=== PATIENT | male | born 1965 | race Caucasian/White ===

== ENCOUNTER 2019-09-10 15:42 | Emergency (ER) | payer SELFPAY ==
[~2019-09-10] VITALS: Ht 167.6 cm; Wt 81.6 kg
[2019-09-10 15:44] VITALS: BP 215/124
--- NOTE | 2019-09-10 15:50 | NUR ---
53/M BIB FAMILY C/O N/V X TODAY, LEFT EYE PAIN & SWELLING X 2 DAYS. BLOOD SUGAR 337, BP 215/124 AT TRIAGE ROOM.MED HX: DM, HTN. PATIENT STATES PAIN OF 8/10 AT THIS TIME. PATIENT POSITIONED FOR COMFORT; HOB ELEVATED; BEDRAILS UP X1; BED DOWN. ER MD MADE AWARE OF PT STATUS.
--- NOTE | 2019-09-10 15:52 | NUR ---
P 145,BP 186/100 AT THIS TIME .
--- NOTE | 2019-09-10 15:55 | NUR ---
PT TAKEN TO BED 12.
[2019-09-10] MEDS ORDERED: MORPHINE SULFATE 2 MG/ML SYR IVP ONE ×2 (16:15→19:20)
[2019-09-10] MEDS ORDERED: ONDANSETRON 4 MG/2 ML VIAL IVP ONE ×2 (16:15→18:00)
[2019-09-10] MEDS ORDERED: TETRACAINE HCL/PF 0.5% OPTH 4 ML BTL OP ONE (16:15)
[2019-09-10] MEDS ORDERED: ENALAPRILAT 2.5 MG/2 ML VIAL IVP ONE (16:15)
[2019-09-10] MEDS ORDERED: NACL 0.9% 1,000 ML IV ONE ×2 (16:15→18:00)
--- NOTE | 2019-09-10 16:44 | NUR ---
PT TAKEN TO RAD VIA WHEELCHAIR
[2019-09-10 17:17] LABS: BASOPHILS % (AUTO) 0.2 % (0.0-2.0); EOSINOPHILS % (AUTO) 0.3 % (0.0-4.0); HEMOGLOBIN 14.5 g/dL (12.0-18.0); LYMPHOCYTES # (AUTO) 1.2 K/uL (2.0-11.5); LYMPHOCYTES % (AUTO) 13.5 % (20.5-51.1); MEAN CORPUSCULAR HEMOGLOBIN 28 pg (27-31); MEAN CORPUSCULAR HGB CONC 32 g/dL (33-37); MEAN CORPUSCULAR VOLUME 85.3 fL (80-94); MONOCYTES # (AUTO) 0.8 K/uL (0.8-1.0); NEUTROPHILS # (AUTO) 6.9 K/uL (1.8-7.7); PLATELET COUNT (AUTO) 315 K/uL (140-450); RED BLOOD CELL COUNT(AUTO) 5.27 MIL/uL (4.20-6.10); RED CELL DISTRIBUTION WIDTH 13.4 % (11.6-13.7); WHITE BLOOD COUNT (AUTO) 8.9 K/uL (4.8-10.8)
[2019-09-10] MEDS ORDERED: TOMOMETER 1 DEV DEV MC ONE (17:26)
[2019-09-10 18:15] LABS: ALBUMIN 3.9 g/dL (3.4-5.0); CARBON DIOXIDE 19.4 mmol/L (21-32); POTASSIUM 4.4 mmol/L (3.5-5.1); TOTAL BILIRUBIN 0.7 mg/dL (0.0-1.0)
--- NOTE | 2019-09-10 18:22 | NUR ---
PT RESTING IN BED, PROVIDED COOL TOWEL AND DIMMED LIGHTS FOR PT COMFORT.
[2019-09-10 18:36] LABS: PROTHROMBIN TIME 8.8 secs (10.8-13.4)
--- NOTE | 2019-09-10 19:30 | NUR ---
RECIEVED REPORT FROM AIXA CLARK. TRANSFER OF CARE AT THIS TIME.
[2019-09-10] MEDS ORDERED: KETOROLAC 30 MG/ML VIAL IVP ONE (20:10)
--- NOTE | 2019-09-10 20:15 | NUR ---
PT STATES HIS PAIN IS STILL 11/11. I WILL MEDICATE WITH MORPHONE, TORODOL ORDERS
--- NOTE | 2019-09-10 20:36 | NUR ---
OBATINED CONSENT FOR IV CONTRAST FOR CT PROCEDURE. PT ABLE TO ASK QUESTIONS
[2019-09-10 21:53] VITALS: BP 152/86
--- NOTE | 2019-09-10 21:53 | NUR ---
Patient discharged with v/s stable. Written and verbal after care instructions given and explained. Patient alert, oriented and verbalized understanding of instructions. Ambulatory with steady gait. All questions addressed prior to discharge. ID band removed. Patient advised to follow up with PMD. Rx of ZOFRAN, METFORMIN, NORCO, AUGMENTIN given. Patient educated on indication of medication including possible reaction and side effects. Opportunity to ask questions provided and answered.
== END 2019-09-10 21:53 | disposition home or self-care (01) ==
LOC: MED 15:42
DX: J32.9 Chronic sinusitis, unspecified (principal); E11.65 Type 2 diabetes mellitus with hyperglycemia; I10 Essential (primary) hypertension; F17.210 Nicotine dependence, cigarettes, uncomplicated
CPT/HCPCS: 36415; 70450; 70481; 80053; 84484; 85025; 85610; 85730; 93005; 96361; 96374; 96375; 96376; 99291; J1885; J2270; J2405; J3490; J7030; Q9967

== ENCOUNTER 2019-09-11 09:42 | Inpatient (IN) | payer MEDICAID ==
[~2019-09-11] VITALS: Ht 167.6 cm; Wt 81.6 kg
[2019-09-11 09:47] VITALS: BP 163/98
[2019-09-11] MEDS ORDERED: AMPICILLIN/SULBACTAM 3 GM in NACL 0.9% 100 ML IV ONE (10:45)
[2019-09-11] MEDS ORDERED: VANCOMYCIN PER PHARMACY MC PRN (10:45)
[2019-09-11] MEDS ORDERED: AMPICILLIN/SULBACTAM 3 GM VIAL ONE (10:51)
[2019-09-11] MEDS ORDERED: VANCOMYCIN 1,000 MG in DEXTROSE 5% 250 ML IV ONE (10:55)
[2019-09-11] MEDS ORDERED: VANCOMYCIN 1,000 MG VIAL ONE (11:08)
[2019-09-11 11:10] LABS: BASOPHILS % (AUTO) 0.4 % (0.0-2.0); EOSINOPHILS # (AUTO) 0.1 K/uL (0-0.4); EOSINOPHILS % (AUTO) 0.9 % (0.0-4.0); HEMATOCRIT 39.2 % (36-52); HEMOGLOBIN 13.1 g/dL (12.0-18.0); LYMPHOCYTES # (AUTO) 1.3 K/uL (2.0-11.5); MEAN CORPUSCULAR HEMOGLOBIN 28 pg (27-31); MEAN CORPUSCULAR HGB CONC 34 g/dL (33-37); MEAN CORPUSCULAR VOLUME 84.6 fL (80-94); MONOCYTES % (AUTO) 10.7 % (1.7-9.3); NEUTROPHILS # (AUTO) 6.9 K/uL (1.8-7.7); PLATELET COUNT (AUTO) 285 K/uL (140-450); RED BLOOD CELL COUNT(AUTO) 4.63 MIL/uL (4.20-6.10); RED CELL DISTRIBUTION WIDTH 12.9 % (11.6-13.7); WHITE BLOOD COUNT (AUTO) 9.3 K/uL (4.8-10.8)
[2019-09-11 11:35] LABS: ANION GAP 22.5 (8-16); CARBON DIOXIDE 20.8 mmol/L (21-32); CREATININE 0.8 mg/dL (0.6-1.3); POTASSIUM 4.3 mmol/L (3.5-5.1)
[2019-09-11] MEDS ORDERED: ONDANSETRON 4 MG/2 ML VIAL IVP ONE (11:35)
[2019-09-11] MEDS ORDERED: MORPHINE SULFATE 4 MG/ML SYR IVP ONE ×3 (11:35→19:55)
[2019-09-11 11:52] LABS: ALBUMIN 3.1 g/dL (3.4-5.0); TOTAL BILIRUBIN 0.4 mg/dL (0.0-1.0)
[2019-09-11] MEDS ORDERED: NACL 0.9% 2,000 ML IV ONE (13:30)
[2019-09-11] MEDS ORDERED: POTASSIUM CHL 20 MEQ/D5-1/2NS 1,000 ML IV ONE (14:15)
[2019-09-11] MEDS ORDERED: INSULIN REGULAR, HUMAN 100 UNIT in NACL 0.9% 100 ML IV ONE ×2 (14:15)
[2019-09-11] MEDS ORDERED: INSULIN REGULAR, HUMAN 100 UNIT in NACL 0.9% 100 ML IV SCH ×2 (14:22)
[2019-09-11 15:15] LABS: PHOSPHORUS 2.6 mg/dL (2.5-4.9)
[2019-09-11] MEDS ORDERED: DEXTROSE 50% 50 ML SYR IVP ONE (15:25)
[2019-09-11 16:18] LABS: CARBON DIOXIDE 21.4 mmol/L (21-32); CREATININE 0.6 mg/dL (0.6-1.3); POTASSIUM 4.4 mmol/L (3.5-5.1); TOTAL BILIRUBIN 0.3 mg/dL (0.0-1.0)
[2019-09-11 16:19] LABS: ALBUMIN 2.8 g/dL (3.4-5.0)
[2019-09-11 18:43] LABS: ANION GAP 21.4 (8-16); CARBON DIOXIDE 21.4 mmol/L (21-32); CREATININE 0.6 mg/dL (0.6-1.3); POTASSIUM 3.8 mmol/L (3.5-5.1)
[2019-09-11] MEDS ORDERED: INSULIN REGULAR, HUMAN 100 UNIT/ML VIAL SUBQ ONE (20:00)
[2019-09-11] MEDS ORDERED: ACETAMINOPHEN 325 MG TAB PO PRN (20:00)
[2019-09-11] MEDS ORDERED: HYDROcodone/APAP 5/325 MG 1 TAB TAB PO PRN (20:00)
[2019-09-11] MEDS ORDERED: DOCUSATE SODIUM 100 MG GELCAP PO PRN (20:00)
[2019-09-11] MEDS ORDERED: LORazepam 2 MG/ML VIAL IM/IVP PRN (20:00)
[2019-09-11] MEDS ORDERED: ZOLPIDEM 5 MG TAB PO PRN (20:00)
[2019-09-11] MEDS ORDERED: ONDANSETRON 4 MG/2 ML VIAL IM/IVP PRN (20:00)
[2019-09-11 20:28] LABS: PROTHROMBIN TIME 8.8 secs (10.8-13.4)
[2019-09-11 20:37] LABS: FREE T4 (FREE THYROXINE) 0.99 ng/dL (0.76-1.46); THYROID STIMULATING HORMONE 0.92 uIU/mL (0.34-3.74)
[2019-09-11] MEDS: NACL 0.9% 1,000 ML IV SCH (20:58)
[2019-09-11 21:30] VITALS: BP 168/96
[2019-09-11 21:38] LABS: APPEARANCE,URINE CLEAR (CLEAR); BILIRUBIN,URINE 1+ (NEGATIVE); BLOOD, URINE 1+ (NEGATIVE); LEUKOCYTE ESTERASE ,URINE NEGATIVE (NEGATIVE); NITRITE, URINE NEGATIVE (NEGATIVE); UGLUCOSE 3+ (NEGATIVE)
[2019-09-11 21:57] LABS: BARBITURATE, URINE NEGATIVE ng/ml (NEG <=200); BENZODIAZEPINE, URINE NEGATIVE ng/mL (NEG <=200); CANNABINOID, URINE NEGATIVE ng/mL (NEG <=50); COCAINE, URINE NEGATIVE ng/mL (NEG <=300); OPIATE, URINE POSITIVE ng/mL (NEG <=2000); PHENCYCLIDINE SCREEN,URINE NEGATIVE ng/mL (NEG <=25)
[2019-09-11 21:58] LABS: COLOR,URINE STRAW (YELLOW); RBC,URINE 0-5 /HPF (0-5); WBC,URINE NONE SEEN /HPF (0-5)
[2019-09-11] MEDS ORDERED: METOPROLOL 5 MG/5 ML VIAL IV SCH (22:25)
[2019-09-11] MEDS: MORPHINE SULFATE 2 MG/ML SYR IVP PRN (23:19)
[2019-09-12] VITALS (7 sets, daily range): BP systolic 134–158; BP diastolic 72–96
[2019-09-12] MEDS ORDERED: ENAL-197 PO (00:37)
[2019-09-12] MEDS ORDERED: METF500T PO (00:37)
[2019-09-12] MEDS ORDERED: ENALAPRIL 10 MG TAB PO SCH ×3 (00:40→10:00)
[2019-09-12] MEDS ORDERED: DEXTROSE 50% 50 ML SYR IVP PRN (00:40)
[2019-09-12] MEDS: NACL 0.9% 1,000 ML IV SCH ×2 (02:39→10:29)
[2019-09-12] MEDS ORDERED: AMPICILLIN/SULBACTAM 3 GM VIAL ONE (04:16)
[2019-09-12] MEDS: MORPHINE SULFATE 2 MG/ML SYR IVP PRN ×3 (04:21→20:55)
[2019-09-12] MEDS: AMPICILLIN/SULBACTAM 3 GM in NACL 0.9% 100 ML IV SCH ×3 (04:31→20:50)
[2019-09-12] MEDS: BLOOD GLUCOSE MONITORING 1 DEV DEV FS SCH ×4 (06:02→21:08)
[2019-09-12] MEDS: INSULIN LISPRO SLIDING SCALE 100 UNITS/ML VIAL SUBQ PRN ×4 (06:04→21:07)
[2019-09-12] MEDS ORDERED: metFORMIN 500 MG TAB PO SCH (09:00)
[2019-09-12] MEDS ORDERED: MORPHINE SULFATE 2 MG/ML SYR IVP PRN (09:45)
[2019-09-12] MEDS ORDERED: DOCUSATE SODIUM 100 MG GELCAP PO PRN (09:45)
[2019-09-12] MEDS ORDERED: ONDANSETRON 4 MG/2 ML VIAL IVP PRN (09:45)
[2019-09-12] MEDS ORDERED: LORazepam 2 MG/ML VIAL IVP PRN (09:45)
[2019-09-12] MEDS ORDERED: ZOLPIDEM 10 MG TAB PO PRN (09:45)
[2019-09-12] MEDS ORDERED: ACETAMINOPHEN 325 MG TAB PO PRN (09:45)
[2019-09-12] MEDS ORDERED: POTASSIUM CHLORIDE 10 MEQ TABER PO PRN (09:45)
[2019-09-12] MEDS ORDERED: MAG SULF 2000 MG/WATER PREMIX 50 ML IV PRN (09:45)
[2019-09-12 14:16] LABS: CARBON DIOXIDE 24.6 mmol/L (21-32); CREATININE 0.8 mg/dL (0.6-1.3); POTASSIUM 3.6 mmol/L (3.5-5.1)
[2019-09-12] MEDS ORDERED: VANCOMYCIN PER PHARMACY MC PRN (19:50)
[2019-09-12] MEDS ORDERED: VANCOMYCIN HCL 1,500 MG in NACL 0.9% 250 ML IV SCH (20:00)
[2019-09-12] MEDS ORDERED: diphenhydrAMINE 50 MG CAP PO SCH (20:35)
[2019-09-12] MEDS ORDERED: ACETAMINOPHEN 325 MG TAB PO SCH (20:35)
[2019-09-12] MEDS ORDERED: METOPROLOL 25 MG TAB PO SCH (21:00)
[2019-09-12] MEDS ORDERED: VANCOMYCIN 500 MG VIAL ONE (22:17)
[2019-09-12] MEDS ORDERED: VANCOMYCIN 1,000 MG VIAL ONE (22:17)
[2019-09-13] MEDS ORDERED: ENALAPRIL 10 MG TAB PO SCH (09:00)
== END 2019-09-13 | disposition left against medical advice (07) | DRG 383 ==
LOC: MED 09:42 → MTU 19:59
PROVIDERS: ADMIT General Practice; ATTEND General Practice
DX: L03.213 Periorbital cellulitis (principal); H04.302 Unspecified dacryocystitis of left lacrimal passage; E11.10 Type 2 diabetes mellitus with ketoacidosis without coma; I10 Essential (primary) hypertension; F17.210 Nicotine dependence, cigarettes, uncomplicated; E43 Unspecified severe protein-calorie malnutrition; H54.62 Unqualified visual loss, left eye, normal vision right eye; H11.422 Conjunctival edema, left eye; Z68.29 Body mass index [BMI] 29.0-29.9, adult; Z79.899 Other long term (current) drug therapy; Z79.84 Long term (current) use of oral hypoglycemic drugs; Z53.29 Procedure and treatment not carried out because of patient's decision for other reasons
CPT/HCPCS: 36415; 36600; 70481; 71045; 80048; 80053; 80305; 81001; 82150; 82803; 82948; 83036; 83690; 83735; 83880; 84100; 84439; 84443; 84484; 85025; 85610; 85730; 87081; 96365; 96366; 96367; 99285; J0295; J1644; J1815; J2270; J2405; J3370; J3490; J7030; Q0092; Q9967